=== PATIENT | female | born 1985 | race Caucasian/White ===

== ENCOUNTER 2022-06-29 14:55 | Emergency (ER) | payer SELFPAY ==
[2022-06-29 15:38] VITALS: BP 165/98; PULSE 95; RESP 16; TEMP 36.5; O2SAT 100; BMI 29.9
--- NOTE | 2022-06-29 16:25 | ED_ITS ---
HPI - General Adult General Time Seen by Provider: 16:25 Date Seen: 06/29/22 Chief complaint: Abdominal Pain Stated complaint: Abdominal pain Time Seen by Provider: 06/29/22 16:10 Source: patient Mode of arrival: ambulatory Limitations: no limitations History of Present Illness HPI narrative: Patient is a 36-year-old female who has had a hysterectomy in the past, and presents with lower abdominal pain diarrhea and vomiting over the last 2 days. She reports her abdominal pain in the lower aspect is very severe, radiates across both sides of her abdomen, does not radiate to her back. No dysuria, no frequency, some loose stool. Some nausea and vomiting. No chest pain, no shortness of breath, no COVID type symptoms. Patient has not had any intestinal issues in the past such as Crohn's colitis or inflammatory bowel disease, no history of obstruction or bowel obstruction. Related Data Home Medications Medication Instructions Recorded Confirmed duloxetine 60 mg capsule,delayed 60 mg PO DAILY 06/29/22 06/29/22 release (Cymbalta) metformin 1,000 mg tablet 1,000 mg PO TIDWM 06/29/22 06/29/22 Previous Rx's Medication Instructions Recorded tramadol 100 mg tablet 100 mg PO Q8H PRN pain #10 tabs 06/29/22 Allergies Allergy/AdvReac Type Severity Reaction Status Date / Time Penicillins Allergy Intermediate Anaphylaxis Verified 06/29/22 15:34 iodine AdvReac Intermediate Rash Verified 06/29/22 15:34 Review of Systems Status of ROS: Reports: 10 or more systems reviewed and unremarkable except as noted in History and below PFSH PFS Medical History DM (diabetes mellitus), type 2 Surgical History History of partial hysterectomy Social History Smoking Status: Current every day smoker What tobacco products do you use: cigarettes Second hand tobacco smoke exposure: Yes How often do you have a drink containing alcohol: 2-4 times a month How many standard drinks containing alcohol do you have on a typical day: 1 or 2 How often do you have six or more drinks on one occasion: Never AUDIT-C Alcohol total score: 2 Non-prescribed substance use: denies use Exam Narrative: Exam Narrative: Objective: Vital signs showed elevated blood pressure In general patient is in [id number] distress and discomfort and nausea, alert orient x3, noncyanotic HEENT otherwise unremarkable neck is supple Pulses regular abdomen is tender across the periumbilical and lower abdomen bilaterally Extremities are no edema Neurologic grossly nonfocal moving all extremities. Const: Vital Signs, click to edit/add: Vital Signs - 24 hr 06/29/22 15:38 06/29/22 17:54 06/29/22 18:41 Temperature 97.7 F Pulse Rate [Pulse Oximeter] 95 87 Respiratory Rate 16 18 Blood Pressure [Ri t Upper Arm] 165/98 H 127/74 Pulse Oximetry 100 98 97 Oxygen Delivery Me thod Room Air Room Air Course Vital Signs Vital signs: Initial Vital Signs Temperature 97.7 F 06/29/22 15:38 Temperature Source Temporal Artery Scan 06/29/22 15:38 Pulse Rate 95 06/29/22 15:38 Respiratory Rate 16 06/29/22 15:38 Blood Pressure 165/98 H 06/29/22 15:38 Blood Pressure Mean 120 06/29/22 15:38 Pulse Oximetry 100 06/29/22 15:38 Oxygen Delivery Method 06/29/22 15:38 Vital Signs Temperature 97.7 F 06/29/22 15:38 Pulse Rate 95 06/29/22 15:38 Respiratory Rate 16 06/29/22 15:38 Blood Pressure 165/98 H 06/29/22 15:38 Pulse Oximetry 100 06/29/22 15:38 Oxygen Delivery Method 06/29/22 15:38 Temperature 97.7 F 06/29/22 15:38 Pulse Rate 87 06/29/22 18:41 Respiratory Rate 18 06/29/22 18:41 Blood Pressure 127/74 06/29/22 18:41 Pulse Oximetry 97 06/29/22 18:41 Oxygen Delivery Method 06/29/22 18:41 Medical Decision Making MDM Narrative Medical decision making narrative: Patient has 2 day history of nausea vomiting mild loose stools significant abdominal pain. Given it has been this duration in in the moderate intensity she has now, I would recommend we CT scanned her abdomen make sure salcido of obstruction, colitis, inflammatory bowel disease. Also make sure she did not have appendicitis. Secondly would recommend IV fluids, IV pain medicine, laboratory studies. Disposition pending clinical response, finding on CT and labs Lab Data Labs: Lab Results 06/29/22 06/29/22 06/29/22 Range/Units 16:01 17:35 17:35 WBC 9.12 (4.50-11.00) K/uL RBC 4.25 (4.00-5.20) m/uL Hgb 14.2 (12.0-16.0) gm/dL Hct 38.7 (33.0-51.0) % MCV 91 (80-100) fL MCH 33 (26-34) pg MCHC 37 H (32-36) gm/dL RDW Coeff of Sandro 11.7 (11.5-15.5) % Plt Count 207 (140-440) K/uL Neut % (Auto) 64.4 (42.0-72.0) % Lymph % (Auto) 28.6 (20-44) % Garvin % (Auto) 4.6 (0.0-11.0) % Eos % (Auto) 1.9 (0.0-7.0) % Baso % (Auto) 0.3 (0.0-3.0) % Neut # (Auto) 5.87 (1.7-7.0) K/uL Lymph # (Auto) 2.61 (0.90-2.90) K/uL Garvin # (Auto) 0.40 (0.00-0.90) K/UL Eos # (Auto) 0.17 (0.00-0.50) K/uL Baso # (Auto) 0.03 (0.00-0.30) K/uL Abs Immat Gran (auto) 0.02 (0.00-0.30) K/uL Imm/Tot Granulo (auto) 0.2 % Sodium 139 (135-149) mmol/L Potassium 3.9 (3.6-5.1) mmol/L Chloride 108 (96-114) mmol/L Carbon Dioxide 22 (20-32) mmol/L BUN 11 (5-24) mg/dL Creatinine 0.5 (0.5-1.5) mg/dL Estimated Creat Clear 144.21 Estimated GFR 124 ml/min Glucose 130 H (60-115) mg/dL Lactate (0.5-1.9) mmol/L Calcium 8.9 (8.4-10.6) mg/dL Total Bilirubin 0.8 (0.1-1.5) mg/dL Direct Bilirubin 0.3 (0.0-0.5) mg/dL AST 42 H (12-35) U/L ALT 35 (4-35) U/L Alkaline Phosphatase 99 (40-150) U/L C-Reactive Protein 0.5 (0.5-1.0) mg/dL Total Protein 7.2 (6.0-8.3) g/dL Albumin 4.4 (3.3-5.0) g/dL Amylase 56 (18-89) U/L Urine Color Yellow (Yellow) Urine Appearance Clear (Clear) Urine pH 6.5 (5.0-8.5) Ur Specific [place] 1.025 (1.000-1.030) Urine Protein Negative (Negative) Urine Glucose (UA) Negative (Negative) Urine Ketones Negative (Negative) Urine Blood Negative (Negative) Urine Nitrite Negative (Negative) Urine Bilirubin Negative (Negative) Urine Urobilinogen 1.0 (0.2-1.0) Ur Leukocyte Esterase Negative (Negative) Urine RBC 2-5 A (0-2) Urine WBC 2-5 (0-5) Ur Squamous Epith Cells Few (None-Few) Urine Bacteria None (None) 06/29/22 Range/Units 17:35 WBC (4.50-11.00) K/uL RBC (4.00-5.20) m/uL Hgb (12.0-16.0) gm/dL Hct (33.0-51.0) % MCV (80-100) fL MCH (26-34) pg MCHC (32-36) gm/dL RDW Coeff of Sandro (11.5-15.5) % Plt Count (140-440) K/uL Neut % (Auto) (42.0-72.0) % Lymph % (Auto) (20-44) % Garvin % (Auto) (0.0-11.0) % Eos % (Auto) (0.0-7.0) % Baso % (Auto) (0.0-3.0) % Neut # (Auto) (1.7-7.0) K/uL Lymph # (Auto) (0.90-2.90) K/uL Garvin # (Auto) (0.00-0.90) K/UL Eos # (Auto) (0.00-0.50) K/uL Baso # (Auto) (0.00-0.30) K/uL Abs Immat Gran (auto) (0.00-0.30) K/uL Imm/Tot Granulo (auto) % Sodium (135-149) mmol/L Potassium (3.6-5.1) mmol/L Chloride (96-114) mmol/L Carbon Dioxide (20-32) mmol/L BUN (5-24) mg/dL Creatinine (0.5-1.5) mg/dL Estimated Creat Clear Estimated GFR ml/min Glucose (60-115) mg/dL Lactate 1.9 (0.5-1.9) mmol/L Calcium (8.4-10.6) mg/dL Total Bilirubin (0.1-1.5) mg/dL Direct Bilirubin (0.0-0.5) mg/dL AST (12-35) U/L ALT (4-35) U/L Alkaline Phosphatase (40-150) U/L C-Reactive Protein (0.5-1.0) mg/dL Total Protein (6.0-8.3) g/dL Albumin (3.3-5.0) g/dL Amylase (18-89) U/L Urine Color (Yellow) Urine Appearance (Clear) Urine pH (5.0-8.5) Ur Specific [place] (1.000-1.030) Urine Protein (Negative) Urine Glucose (UA) (Negative) Urine Ketones (Negative) Urine Blood (Negative) Urine Nitrite (Negative) Urine Bilirubin (Negative) Urine Urobilinogen (0.2-1.0) Ur Leukocyte Esterase (Negative) Urine RBC (0-2) Urine WBC (0-5) Ur Squamous Epith Cells (None-Few) Urine Bacteria (None) Discharge Plan Discharge Clinical Impression: Abdominal pain, vomiting, and diarrhea Patient Disposition: Home w/ Parent or Adult Condition: Improved Additional Instructions: Rest, light activity, fluids, yogurt orally, light diet. Update regular doctor next couple of days. Return to ED sooner problems or concerns Activity Level: Light activity Discharge Diet: Regular Prescriptions: New tramadol 100 mg tablet 100 mg PO Q8H PRN (Reason: pain) Qty: 10 0RF No Action duloxetine [Cymbalta] 60 mg capsule,delayed release(DR/EC) 60 mg PO DAILY metformin 1,000 mg tablet 1,000 mg PO TIDWM Stand Alone Forms: My[facility] Info Instructions
[2022-06-29 16:41] LABS: Appearance Urine Clear (Clear); Bilirubin Urine Negative (Negative); Blood Urine Negative (Negative); Color Urine Yellow (Yellow); Glucose Urine Negative (Negative); Ketones Urine Negative (Negative); Leukocyte Esterase Urine Negative (Negative); Nitrite Urine Negative (Negative); Protein Urine Negative (Negative); Specific Gravity Urine 1.025 (1.000-1.030); pH Urine 6.5 (5.0-8.5)
[2022-06-29 17:02] LABS: Squamous Epithelial Cell Urine Few (None-Few)
--- NOTE | 2022-06-29 17:32 | CRLHL7_ITS ---
For Patients: As a result of the Century Cures Act, medical imaging exams and procedure reports are released immediately into your electronic medical record. You may view this report before your referring provider. If you have questions, please contact your health care provider. INDICATION: Lower abdominal pain. TECHNIQUE: CT abdomen and pelvis without contrast. COMPARISON: None. FINDINGS: Lower chest: Unremarkable. Liver: Diffuse fatty infiltration. Gallbladder and bile ducts: No stones or inflammation. No biliary dilatation. Pancreas: Unremarkable. No mass or inflammation. Spleen: Normal in size. No masses. Adrenal glands: Normal in size. No nodules. Kidneys: Normal in size. No suspicious masses, stones, or hydronephrosis. GI tract: Unremarkable. Normal in caliber. No sign of mass or inflammation. Normal appendix. Vasculature: Abdominal aorta is normal in caliber. Lymph nodes: No lymphadenopathy. Peritoneum/Abdominal Wall: Unremarkable. No sign of mass or infiltration. No free air or significant free fluid. Pelvis: A 4 cm simple appearing cyst is in the left ovary. Pelvic structures otherwise unremarkable. Bones: Unremarkable for age. IMPRESSION: 1. 4 cm simple appearing left ovarian cyst without evidence of rupture. 2. Remainder of the exam is unremarkable. No other specific finding to explain lower abdominal pain. Please note that all CT scans at this facility use dose modulation, iterative reconstruction, and/or weight-based dosing when appropriate to reduce radiation dose to as low as reasonably achievable. Dictated by Marquez Hendrix MD @ 06/29/2022 6:14:23 PM (Electronically Signed)
[2022-06-29 17:43] LABS: Lactate* 1.9 mmol/L (0.5-1.9)
[2022-06-29 17:44] LABS: Basophils Absolute Auto 0.03 K/uL (0.00-0.30); Basophils Percent Auto 0.3 % (0.0-3.0); Eosinophils Absolute Auto 0.17 K/uL (0.00-0.50); Eosinophils Percent Auto 1.9 % (0.0-7.0); Hematocrit 38.7 % (33.0-51.0); Hemoglobin* 14.2 gm/dL (12.0-16.0); Immature Granulocytes Abs Auto 0.02 K/uL (0.00-0.30); Immature Granulocytes Pct Auto 0.2 %; Lymphocytes Absolute Auto 2.61 K/uL (0.90-2.90); Lymphocytes Percent Auto 28.6 % (20-44); Mean Corpuscular HGB Conc 37 gm/dL (32-36); Mean Corpuscular Hemoglobin 33 pg (26-34); Mean Corpuscular Volume 91 fL (80-100); Monocytes Percent Auto 4.6 % (0.0-11.0); Neutrophils Absolute Auto 5.87 K/uL (1.7-7.0); Neutrophils Percent Auto 64.4 % (42.0-72.0); Platelet Count* 207 K/uL (140-440); RDW Coefficient of Variation % 11.7 % (11.5-15.5); Red Blood Count 4.25 m/uL (4.00-5.20); White Blood Count* 9.12 K/uL (4.50-11.00)
[2022-06-29] MEDS: ONDANSETRON 2 MG/ML inj 4 MG IVP (17:45)
[2022-06-29] MEDS: 0.9 % SODIUM CHLORIDE 1000 ml 1,000 ML 6000 ML IV (17:45)
[2022-06-29] MEDS: HYDROmorphone 0.5 mg/0.5 ml inj IVP (17:45)
[2022-06-29 17:49] LABS: Slide Review Reflex No
[2022-06-29 17:54] VITALS: O2SAT 98
[2022-06-29] MEDS: HYDROmorphone 0.5 mg/0.5 ml inj 1 MG IVP (18:28)
[2022-06-29 18:41] VITALS: BP 127/74; PULSE 87; RESP 18; O2SAT 97
[2022-06-29 19:09] LABS: Albumin* 4.4 g/dL (3.3-5.0); Chloride* 108 mmol/L (96-114); Sodium* 139 mmol/L (135-149)
[2022-06-29 19:10] LABS: Potassium* 3.9 mmol/L (3.6-5.1)
[2022-06-29 19:11] LABS: Amylase* 56 U/L (18-89); Creatinine* 0.5 mg/dL (0.5-1.5); Est. Creatinine Clearance* 144.21; Estimated Glomerular Filt Rate 124 ml/min
[2022-06-29 19:12] LABS: Alanine Aminotransferase* 35 U/L (4-35); Alkaline Phosphatase* 99 U/L (40-150); Aspartate Amino Transferase* 42 U/L (12-35); Bilirubin Direct* 0.3 mg/dL (0.0-0.5); Bilirubin Total* 0.8 mg/dL (0.1-1.5); Blood Urea Nitrogen* 11 mg/dL (5-24); Carbon Dioxide* 22 mmol/L (20-32); Glucose* 130 mg/dL (60-115); Total Protein* 7.2 g/dL (6.0-8.3)
[2022-06-29 19:13] LABS: Calcium* 8.9 mg/dL (8.4-10.6)
[2022-06-29 19:15] LABS: C Reactive Protein* 0.5 mg/dL (0.5-1.0)
== END 2022-06-29 19:45 | disposition home or self-care (01) ==
PROVIDERS: Emergency Provider Family Medicine
DX: R10.30 Lower abdominal pain, unspecified (principal); R11.10 Vomiting, unspecified; R19.7 Diarrhea, unspecified
CPT/HCPCS: 36415; 74176; 80048; 80076; 81001; 82150; 83605; 85025; 86140; 87086; 94761; 96361; 96374; 96375; 99284; J1170; J2405; J7030

== ENCOUNTER 2022-11-14 10:38 | Emergency (ER) | payer MEDICAID, SELFPAY ==
[2022-11-14] VITALS (23 sets, daily range): BP systolic 139–192; BP diastolic 83–128; PULSE 77–104; RESP 20; TEMP 36.2; O2SAT 94–99; BMI 29.1
--- NOTE | 2022-11-14 10:57 | ED.ABDPAIN ---
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 Patient notes the onset of discomfort approximately 48 hours ago that was initially treated with ibuprofen and Tylenol successfully. However in the last 24 hours the pain has increased and she is not getting any relief. This is associated with mild nausea and diarrhea but no fever chills or vomiting. Patient notes that she has had a history of ovarian cysts in the past as well as kidney stones. She has absent a uterus secondary to endometriosis but retains both ovaries. She is a type 2 diabetic controlled with metformin. She states that she is adopted so she does not know of family reactions to anesthesia or family history. She notes that she has a allergy to iodine and in the past had needs to be treated with Benadryl prior to contrast administration. Movement greatly increases her pain. Sneezing or coughing greatly increases her pain. She is preferring to lie still and not moved. She does agree that she had a small amount of blood in her urine 1 time over last 24 hours. Related Data Home Medications Medication Instructions Recorded Confirmed duloxetine 60 mg capsule,delayed 60 mg PO DAILY 06/29/22 06/29/22 release (Cymbalta) metformin 1,000 mg tablet 1,000 mg PO TIDWM 06/29/22 06/29/22 Previous Rx's Medication Instructions Recorded tramadol 100 mg tablet 100 mg PO Q8H PRN pain #10 tabs 06/29/22 Allergies Allergy/AdvReac Type Severity Reaction Status Date / Time Penicillins Allergy Intermediate Anaphylaxis Verified 06/29/22 15:34 iodine AdvReac Intermediate Rash Verified 06/29/22 15:34 Review of Systems Status of ROS Reports: 10 or more systems reviewed and unremarkable except as noted in History and below Const Denies: fever, chills or fatigue ENMT Denies: throat pain, neck pain or throat swelling Cardio Denies: shortness of breath with exertion Resp Denies: shortness of breath or cough GI Reports: nausea and diarrhea; Denies: abdominal pain, vomiting or blood in stool Reports: blood in urine; Denies: painful urination or urinary frequency Musculo Denies: back pain, neck pain or extremity pain Neuro Denies: headache Endo Denies: fatigue Allergy/Immuno Denies: throat swelling PFSH PFS Medical History DM (diabetes mellitus), type 2 ?E11.9 - Type 2 diabetes mellitus without complications (ICD-10) Surgical History History of partial hysterectomy ?Z90.711 - Acquired absence of uterus with remaining cervical stump (ICD-10) Social History Smoking Status: Current every day smoker What tobacco products do you use: cigarettes Second hand tobacco smoke exposure: Yes How often do you have a drink containing alcohol: 2-4 times a month How many standard drinks containing alcohol do you have on a typical day: 1 or 2 How often do you have six or more drinks on one occasion: Never AUDIT-C Alcohol total score: 2 Non-prescribed substance use: denies use service: Yes Exam Narrative: Exam Narrative: Patient is alert and oriented. Tearful. Face symmetrical. Mentating normally with appropriate speech content. Neck is supple. Heart with a tachycardic rate but normal rhythm. Lungs are clear bilaterally. There is a strong smell of cigarette smoke in the room. Abdomen is soft but patient does have tenderness in the right lower quadrant and definitely rebound tenderness. Lower extremities without edema. Moving all extremities. Guarded in bowel movement. Const: Vital Signs, click to edit/add: Vital Signs - 24 hr 11/14/22 10:45 11/14/22 11:28 11/14/22 11:30 Temperature 97.1 F L Pulse Rate 87 93 Pulse Rate [Pulse Oximeter] 104 H Respiratory Rate 20 Blood Pressure Blood Pressure [Le ft Upper Arm] 192/128 H Pulse Oximetry 99 97 96 Oxygen Delivery Me thod Room Air 11/14/22 11:36 11/14/22 12:00 11/14/22 12:02 Temperature Pulse Rate 93 78 77 Pulse Rate [Pulse Oximeter] Respiratory Rate Blood Pressure 150/106 H 157/106 H Blood Pressure [Le ft Upper Arm] Pulse Oximetry 94 96 96 Oxygen Delivery Me thod 11/14/22 12:30 11/14/22 12:32 11/14/22 13:00 Temperature Pulse Rate 82 85 79 Pulse Rate [Pulse Oximeter] Respiratory Rate Blood Pressure 160/111 H Blood Pressure [Le ft Upper Arm] Pulse Oximetry 99 98 99 Oxygen Delivery Me thod 11/14/22 13:02 11/14/22 13:30 11/14/22 13:32 Temperature Pulse Rate 81 83 84 Pulse Rate [Pulse Oximeter] Respiratory Rate Blood Pressure 147/93 H 165/109 H Blood Pressure [Le ft Upper Arm] Pulse Oximetry 96 94 94 Oxygen Delivery Me thod 11/14/22 14:00 11/14/22 14:02 11/14/22 14:03 Temperature Pulse Rate 78 80 78 Pulse Rate [Pulse Oximeter] Respiratory Rate Blood Pressure 141/85 H Blood Pressure [Le ft Upper Arm] Pulse Oximetry 94 94 95 Oxygen Delivery Me thod 11/14/22 14:30 11/14/22 14:32 11/14/22 14:33 Temperature Pulse Rate 82 79 83 Pulse Rate [Pulse Oximeter] Respiratory Rate Blood Pressure 139/83 Blood Pressure [Le ft Upper Arm] Pulse Oximetry 95 97 96 Oxygen Delivery Me thod 11/14/22 15:03 11/14/22 15:47 11/14/22 16:00 Temperature Pulse Rate 85 81 79 Pulse Rate [Pulse Oximeter] Respiratory Rate Blood Pressure Blood Pressure [Le ft Upper Arm] Pulse Oximetry 96 96 97 Oxygen Delivery Mt thod 11/14/22 16:06 11/14/22 16:07 Temperature Pulse Rate 79 79 Pulse Rate [Pulse Oximeter] Respiratory Rate Blood Pressure Blood Pressure [Le ft Upper Arm] Pulse Oximetry 96 96 Oxygen Delivery Mt thod Documenting provider has reviewed patient's vital signs: yes Course Course Hospital Course: Differential diagnosis at this time includes but is not limited to appendicitis, colitis, diverticulitis, ureteral colic/kidney stone, ovarian cyst, ovarian torsion, internal hernia bowel obstruction volvulus intussusception. Will place IV and give 1 L of normal saline, morphine 4 mg, Zofran 4 mg. Labs will include a CBC, comprehensive panel, CRP, urinalysis. I would like to get a CT of the abdomen and pelvis with contrast. Will discuss use of contrast in this patient is states that she developed hives with iodine. She states that pre treating with Benadryl is usually all that she needs to abort the reaction. Reevaluation(s) Reevaluation #1: Patient was pretreated with Benadryl and hydrocortisone before CT. Patient did require additional medication of Dilaudid 0.[address] surprisingly returned within normal limits. Patient then received Toradol 15 mg IV which did help her pain. Immediately prior to ultrasound patient did have increasing pain was given an additional dose of Dilaudid 0.5 mg. Vital Signs Vital signs: Initial Vital Signs Temperature 97.1 F L 11/14/22 10:45 Temperature Source Temporal Artery Scan 11/14/22 10:45 Pulse Rate 104 H 11/14/22 10:45 Pulse Rhythm Regular 11/14/22 10:45 Respiratory Rate 20 11/14/22 10:45 Blood Pressure 192/128 H 11/14/22 10:45 Blood Pressure Mean 149 H 11/14/22 10:45 Blood Pressure Position Supine 11/14/22 10:45 Pulse Oximetry 99 11/14/22 10:45 Oxygen Delivery Method Room Air 11/14/22 10:45 Vital Signs Temperature 97.1 F L 11/14/22 10:45 Pulse Rate 104 H 11/14/22 10:45 Respiratory Rate 20 11/14/22 10:45 Blood Pressure 192/128 H 11/14/22 10:45 Pulse Oximetry 99 11/14/22 10:45 Oxygen Delivery Method Room Air 11/14/22 10:45 Temperature 97.1 F L 11/14/22 10:45 Pulse Rate 79 11/14/22 16:07 Respiratory Rate 20 11/14/22 10:45 Blood Pressure 139/83 11/14/22 14:32 Pulse Oximetry 96 11/14/22 16:07 Oxygen Delivery Method Room Air 11/14/22 10:45 MDM - Abdominal Pain MDM Narrative Medical decision making narrative: 1. Abdominal pain -at this time CT is negative for any abnormalities. An ultrasound was done as well that showed normal blood flow with no evidence of torsion or ovarian cyst. At this time I do consult with both surgery Dr. Hagan and Dr. Marilyn Shearer the OBGYN regarding this patient's pain. At this time given normal labs and reassuring radiological studies there is a general consensus that this is likely musculoskeletal. Patient has not been doing any excessive were cannot recall any injury. She states I really just wanted to find out if she was dying. She notes that she is feeling somewhat improved. I do a check of the [employer] and while she has had narcotics previously this was sporadically in 2021 and nothing in 2022. Patient will be discharged home. She may use ibuprofen 600 mg every 8 hours as needed for pain. Will also give her Flexeril 10 mg p.o. t.i.d. p.r.n. number 30 via instant med[facility] with no refills. She is to follow-up with OBGYN as this may also be her endometriosis. She will need to be recheck for that. She states she lives down in the [place] area but would gladly drive to [place] for further cares. 2. Type 2 diabetes-stable 3. Disposition-home at this time. Return course seek medical attention for ongoing or worsening symptoms. Lab Data Attestation: I reviewed the patient's lab results. Labs: Lab Results 11/14/22 11/14/22 Range/Units 10:50 11:15 WBC 8.08 (4.50-11.00) K/uL RBC 4.69 (4.00-5.20) m/uL Hgb 15.5 (12.0-16.0) gm/dL Hct 43.0 (33.0-51.0) % MCV 92 (80-100) fL MCH 33 (26-34) pg MCHC 36 (32-36) gm/dL RDW Coeff of Sandro 11.6 (11.5-15.5) % Plt Count 223 (140-440) K/uL Neut % (Auto) 63.1 (42.0-72.0) % Lymph % (Auto) 28.3 (20-44) % [place] % (Auto) 4.8 (0.0-11.0) % Eos % (Auto) 3.3 (0.0-7.0) % Baso % (Auto) 0.4 (0.0-3.0) % Neut # (Auto) 5.09 (1.7-7.0) K/uL Lymph # (Auto) 2.29 (0.90-2.90) K/uL [place] # (Auto) 0.40 (0.00-0.90) K/UL Eos # (Auto) 0.27 (0.00-0.50) K/uL Baso # (Auto) 0.03 (0.00-0.30) K/uL Sodium 136 (135-149) mmol/L Potassium 3.7 (3.6-5.1) mmol/L Chloride 105 (96-114) mmol/L Carbon Dioxide 21 (20-32) mmol/L BUN 10 (5-24) mg/dL Creatinine 0.5 (0.5-1.5) mg/dL Estimated Creat Clear 142.81 Estimated GFR 123 ml/min Glucose 197 H (60-115) mg/dL Calcium 8.8 (8.4-10.6) mg/dL Total Bilirubin 1.4 (0.1-1.5) mg/dL AST 38 H (12-35) U/L ALT 40 H (4-35) U/L Alkaline Phosphatase 92 (40-150) U/L C-Reactive Protein 1.0 (0.5-1.0) mg/dL Total Protein 7.6 (6.0-8.3) g/dL Albumin 4.5 (3.3-5.0) g/dL Urine Color Light yellow (Yellow) Urine Appearance Slightly Cloudy A (Clear) Urine pH 6.5 (5.0-8.5) Ur Specific [place] 1.020 (1.000-1.030) Urine Protein Negative (Negative) Urine Glucose (UA) 1+ A (Negative) Urine Ketones Trace A (Negative) Urine Blood Negative (Negative) Urine Nitrite Negative (Negative) Urine Bilirubin Negative (Negative) Urine Urobilinogen 0.2 (0.2-1.0) Ur Leukocyte Esterase Negative (Negative) Urine RBC 0-2 (0-2) Urine WBC 2-5 (0-5) Ur Squamous Epith Cells Few (None-Few) Urine Bacteria Few A (None) Imaging Data CT scan - abdomen: Attestation: I have reviewed the pertinent imaging results. Radiologist's impression: FINDINGS: LUNG BASES: The lung bases as visualized appear normal.The heart size is normal at the lung bases. LIVER/BILIARY SYSTEM:The liver is normal in size and configuration. There is no focal mass and there is no intra- or extra hepatic biliary ductal dilatation.Hepatic steatosis. Normal appearing gallbladder ADRENALS: Normal KIDNEYS, URETERS and BLADDER:The kidneys appear normal. No visible mass, calculus or hydronephrosis. The ureters and bladder as visualized appear normal. SPLEEN:Normal appearance. PANCREAS: Appears normal. RETROPERITONEUM and MESENTERY: There is no mass, adenopathy or aortic aneurysm. GASTROINTESTINAL SYSTEM: There is no evidence of diverticulitis, colitis, mechanical obstruction, or appendicitis. The small bowel as visualized appears normal.The appendix is well seen and appears normal. PELVIS: No mass, adenopathy or free fluid. OSSEOUS STRUCTURES and ABDOMINAL WALL: There is an age-appropriate appearance of the osseous structures.No significant abdominal wall defect. OTHER: No free fluid or free air. IMPRESSION: No specific visible cause for pain. Nonacute appearing findings as above. Pelvic ultrasound: Radiologist's impression: Uterus: Surgically absent. Right ovary: 2.9 x 1.4 x 1.7 cm.? No ovarian or adnexal masses.? Normal arterial and venous blood flow.? Left ovary: 4.1 x 2.4 x 2.2 cm.? No ovarian or adnexal masses.? Normal arterial and venous blood flow.? No free fluid is demonstrated. IMPRESSION: No evidence for ovarian torsion. Discharge Plan Discharge Clinical Impression: Acute right lower quadrant pain Patient Disposition: Home, Self-Care Condition: Improved Additional Instructions: Ibuprofen 600 mg every 8 hours as needed for discomfort. Flexeril for muscle relaxation. Note that if using Flexeril you should not use alcohol nor should you drive as this does cause sedation. Follow-up with OBGYN for recheck of endometriosis. Phone number for appointment is [phone]. Seek medical attention for worsening symptoms. Prescriptions: No Action duloxetine [Cymbalta] 60 mg capsule,delayed release(DR/EC) 60 mg PO DAILY metformin 1,000 mg tablet 1,000 mg PO TIDWM tramadol 100 mg tablet 100 mg PO Q8H PRN (Reason: pain) Qty: 10 0RF Follow Up/Referrals: Provider,Not a Local [Primary Care Provider] - Stand Alone Forms: [facility] Info Instructions
--- NOTE | 2022-11-14 11:04 | CRLHL7_ITS ---
For Patients: As a result of the Century Cures Act, medical imaging exams and procedure reports are released immediately into your electronic medical record. You may view this report before your referring provider. If you have questions, please contact your health care provider. INDICATION: Right lower quadrant pain for 2 days. Nausea. COMPARISON: June 29, 2022 TECHNIQUE: CT examination of the abdomen and pelvis was performed following the uneventful intravenous administration of 89 cc of Visipaque 320. Thin section axial images were obtained from the lung bases through the pubic symphysis. Oral contrast was not administered. Please note that all CT scans at this facility use dose modulation, iterative reconstruction, and/or weight-based dosing when appropriate to reduce radiation dose to as low as reasonably achievable. FINDINGS: LUNG BASES: The lung bases as visualized appear normal.The heart size is normal at the lung bases. LIVER/BILIARY SYSTEM:The liver is normal in size and configuration. There is no focal mass and there is no intra- or extra hepatic biliary ductal dilatation.Hepatic steatosis. Normal appearing gallbladder ADRENALS: Normal KIDNEYS, URETERS and BLADDER:The kidneys appear normal. No visible mass, calculus or hydronephrosis. The ureters and bladder as visualized appear normal. SPLEEN:Normal appearance. PANCREAS: Appears normal. RETROPERITONEUM and MESENTERY: There is no mass, adenopathy or aortic aneurysm. GASTROINTESTINAL SYSTEM: There is no evidence of diverticulitis, colitis, mechanical obstruction, or appendicitis. The small bowel as visualized appears normal.The appendix is well seen and appears normal. PELVIS: No mass, adenopathy or free fluid. OSSEOUS STRUCTURES and ABDOMINAL WALL: There is an age-appropriate appearance of the osseous structures.No significant abdominal wall defect. OTHER: No free fluid or free air. IMPRESSION: No specific visible cause for pain. Nonacute appearing findings as above. Please note that all CT scans at this facility use dose modulation, iterative reconstruction, and/or weight-based dosing when appropriate to reduce radiation dose to as low as reasonably achievable. Dictated by Juan José Khan MD @ 11/14/2022 2:34:43 PM (Electronically Signed)
[2022-11-14 11:05] LABS: Appearance Urine Slightly Cloudy (Clear); Bilirubin Urine Negative (Negative); Blood Urine Negative (Negative); Color Urine Light yellow (Yellow); Glucose Urine 1+ (Negative); Ketones Urine Trace (Negative); Leukocyte Esterase Urine Negative (Negative); Nitrite Urine Negative (Negative); Protein Urine Negative (Negative); Urobilinogen Urine 0.2 (0.2-1.0); pH Urine 6.5 (5.0-8.5)
[2022-11-14 11:14] LABS: Bacteria Urine Few; RBC Urine 0-2 (0-2); Squamous Epithelial Cell Urine Few (None-Few)
[2022-11-14] MEDS: 0.9 % SODIUM CHLORIDE 1000 ml 1,000 ML IV (11:27)
[2022-11-14] MEDS: MORPHINE 4 MG/ML INJ IVP (11:27)
[2022-11-14] MEDS: ONDANSETRON 2 MG/ML inj 4 MG IVP (11:27)
[2022-11-14 11:48] LABS: Albumin* 4.5 g/dL (3.3-5.0); Chloride* 105 mmol/L (96-114); Potassium* 3.7 mmol/L (3.6-5.1); Sodium* 136 mmol/L (135-149)
[2022-11-14 11:50] LABS: Bilirubin Total* 1.4 mg/dL (0.1-1.5); Creatinine* 0.5 mg/dL (0.5-1.5); Est. Creatinine Clearance* 142.81; Estimated Glomerular Filt Rate 123 ml/min
[2022-11-14 11:51] LABS: Alanine Aminotransferase* 40 U/L (4-35); Alkaline Phosphatase* 92 U/L (40-150); Aspartate Amino Transferase* 38 U/L (12-35); Blood Urea Nitrogen* 10 mg/dL (5-24); Carbon Dioxide* 21 mmol/L (20-32); Glucose* 197 mg/dL (60-115); Total Protein* 7.6 g/dL (6.0-8.3)
[2022-11-14 11:52] LABS: Calcium* 8.8 mg/dL (8.4-10.6)
[2022-11-14] MEDS: HYDROCORTISONE SOD SUCCINATE 50 MG/ML inj 100 MG IVP (12:08)
[2022-11-14] MEDS: diphenhydrAMINE 50 MG/ML inj IVP (12:08)
[2022-11-14 12:27] LABS: Basophils Absolute Auto 0.03 K/uL (0.00-0.30); Basophils Percent Auto 0.4 % (0.0-3.0); Eosinophils Absolute Auto 0.27 K/uL (0.00-0.50); Eosinophils Percent Auto 3.3 % (0.0-7.0); Hemoglobin* 15.5 gm/dL (12.0-16.0); Immature Granulocytes Abs Auto 0.01 K/uL (0.00-0.30); Immature Granulocytes Pct Auto 0.1 %; Lymphocytes Absolute Auto 2.29 K/uL (0.90-2.90); Lymphocytes Percent Auto 28.3 % (20-44); Mean Corpuscular HGB Conc 36 gm/dL (32-36); Mean Corpuscular Hemoglobin 33 pg (26-34); Mean Corpuscular Volume 92 fL (80-100); Monocytes Percent Auto 4.8 % (0.0-11.0); Neutrophils Absolute Auto 5.09 K/uL (1.7-7.0); Neutrophils Percent Auto 63.1 % (42.0-72.0); Platelet Count* 223 K/uL (140-440); RDW Coefficient of Variation % 11.6 % (11.5-15.5); Red Blood Count 4.69 m/uL (4.00-5.20); White Blood Count* 8.08 K/uL (4.50-11.00)
[2022-11-14 12:28] LABS: Slide Review Reflex No
[2022-11-14] MEDS: HYDROmorphone 0.5 mg/0.5 ml inj IVP ×2 (12:59→15:01)
[2022-11-14] MEDS: KETOROLAC 15 MG/ML inj IVP (14:19)
--- NOTE | 2022-11-14 14:50 | CRLHL7_ITS ---
For Patients: As a result of the Century Cures Act, medical imaging exams and procedure reports are released immediately into your electronic medical record. You may view this report before your referring provider. If you have questions, please contact your health care provider. INDICATION: Right lower quadrant pain TECHNIQUE: Ultrasound pelvis transvaginal. Real-time sonographic images with spectral and color Doppler imaging of the ovaries were obtained. COMPARISON: CT abdomen pelvis from same date FINDINGS: Uterus: Surgically absent. Right ovary: 2.9 x 1.4 x 1.7 cm. No ovarian or adnexal masses. Normal arterial and venous blood flow. Left ovary: 4.1 x 2.4 x 2.2 cm. No ovarian or adnexal masses. Normal arterial and venous blood flow. No free fluid is demonstrated. IMPRESSION: No evidence for ovarian torsion. Status post hysterectomy. Dictated by Jadyn Melendrez MD @ 11/14/2022 4:29:56 PM (Electronically Signed)
== END 2022-11-14 16:56 | disposition home or self-care (01) ==
PROVIDERS: Emergency Provider Family Medicine
DX: R10.31 Right lower quadrant pain (principal)
CPT/HCPCS: 36415; 74177; 76830; 80053; 81001; 85025; 86140; 87086; 93976; 94761; 96374; 96375; 96376; 99284; 99285; J1170; J1200; J1720; J1885; J2270; J2405; J7030; Q9967

== ENCOUNTER 2022-11-24 07:22 | Day surgery (SDC) | payer MEDICAID, SELFPAY ==
[2022-11-24] VITALS (18 sets, daily range): BP systolic 117–173; BP diastolic 69–103; PULSE 65–89; RESP 16–20; TEMP 36.4–37.1; O2SAT 95–99; BMI 30.4
[2022-11-24 08:06] LABS: Hemoglobin* 15.9 gm/dL (12.0-16.0)
[2022-11-24] MEDS: LACTATED RINGERS 1000 ML 1,000 ML 100 ML IV ×2 (08:35→10:05)
[2022-11-24] MEDS: SODIUM CHLORIDE 0.9 % (FLUSH) 10 ML SYRINGE IVF (08:39)
--- NOTE | 2022-11-24 08:57 | W.ANESCHARGE ---
Anesthesia Charges Start Date/Time Anesthesia Start Date: 11/24/22 Anesthesia Start Time: 08:42 Stop Date/Time Anesthesia Stop Date: 11/24/22 Anesthesia Stop Time: 10:43
[2022-11-24] MEDS: BUPIVACAINE 0.25% 30 ML INJECTION (09:30)
[2022-11-24] MEDS: SILVER NITRATE APPLICATOR 1 EACH STICK..EA. TOPICAL (10:30)
--- NOTE | 2022-11-24 10:46 | W.ANESCHARGE ---
Anesthesia Charges Start Date/Time Anesthesia Start Date: 11/24/22 Anesthesia Start Time: 08:42 Stop Date/Time Anesthesia Stop Date: 11/24/22 Anesthesia Stop Time: 10:43
[2022-11-24] MEDS: HYDROmorphone 0.5 mg/0.5 ml inj IVP (11:05)
--- NOTE | 2022-11-24 11:05 | W.PM.GYNPROC ---
Procedure Note Date Seen: 11/24/22 Procedure Details: PREOPERATIVE DIAGNOSIS: Chronic intermittent pelvic pain Endometriosis Vulvitis POSTOPERATIVE DIAGNOSIS: Chronic intermittent pelvic pain Endometriosis Vulvitis PROCEDURE: Laparoscopic left oophorectomy, fulguration and excision of endometriosis Vulvar biopsy SURGEON: Kim Jo MD CUTTING MACHINE OFFBEARER: Abiola Man MD ANESTHESIA: General IV FLUIDS: 1100 mL crystalloid URINE OUTPUT: 200 mL EBL: 10 mL FINDINGS: 1. Upon pelvic exam under anesthesia, vulvar skin surrounding the introitus, including the anterior perineum, bilateral labia minora, and inner portions of labia majora appear thickened and erythematous. There is a midline fissue at the posterior introitus extending down the anterior perineum. The vaginal introitus is normal in appearance, as is the urethral meatus, clitoris, and mons. 2. Upon laparoscopy, survey of the upper abdomen revealed a normal appearance to the inferior edge of the liver and stomach. Bowels were grossly normal appearance, as was the appendix. Survey of the pelvis revealed uterus and bilateral fallopian tubes to be surgically absent. The left ovary was densely adherent to the left pelvic sidewall, partially obscured by filmy adhesions of the sigmoid to the left pelvic sidewall. The right ovary was entirely normal in appearance. There was a fleshy yellow nodule just beneath the peritoneal covering adjacent to the right vaginal cuff, and 2 powder burn lesions along the right uterosacral ligament. The anterior-most powder burn lesion was deep, and the posterior-most was superficial. The cul-de-sac and bladder reflection were normal in appearance. COMPLICATIONS: None PROCEDURE IN DETAIL: Patient was taken to the operating room with IV running. She was positioned in dorsal lithotomy position with her legs fully supported in Yellofin stirrups. General anesthesia was administered. She was prepped and draped in the usual sterile fashion. A sponge stick was placed in the patient's vagina to aid in laparoscopic visualization of the vaginal cuff. Berry catheter was placed. Patient's legs were placed in neutral position. Attention was turned to patient's abdomen. The infraumbilical area was infiltrated with small amount of Marcaine. An infraumbilical incision was made with a scalpel and carried through to the underlying layer of fascia with a hemostat. The 5 mm Fios Kii trocar was assembled with laparoscope within, and insufflator attached. While tenting up the abdomen manually, the trocar was passed through the anterior abdominal wall into the peritoneal cavity. Trocar was removed. Pneumoperitoneum was achieved. Survey of abdomen and pelvis revealed the above-noted findings. Three additional port sites were created. The first was in the patient's left lower quadrant, just superior medial to the left ASIS. The second was a hand's breath superior to and slightly medial to the first. The third was in the patient's right lower quadrant, just superior medial to the right ASIS. Each was infiltrated with small amount of Marcaine prior to incision. A 5 mm incision was made at each site, making sure the large vessels were out of harm's way. A 5 mm Fios Kii port was inserted at each site, under direct visualization and without complication. The balloon on each of the four ports was inflated, holding each in place. Later in the case, after decision was made to remove left ovary, the port in the left lower quadrant was exchanged for an 11 mm port. Attention was 1st turned to the left ovary. This was held with gentle traction away from the pelvic sidewall. Filmy adhesions were dissected bluntly away from the ovarian cortex. The left ureter was identified well beneath the field of dissection. The infundibulopelvic ligament was then cauterized and transected with the Thunderbeat device. This dissection was carried down the left pelvic sidewall, and the ovary was dissected off the sidewall with the Thunderbeat, ultimately freeing the specimen. This was placed in the cul-de-sac. Hemostasis of the sidewall was achieved with monopolar cautery. The above described lesions along the right vaginal cuff and right uterosacral ligament were grasped with Jesica forceps and sharply dissected from beneath the peritoneum. The posterior most of these 3 lesions was simply fulgurated, as this was very superficial. Hemostasis at the first 2 sites were achieved with monopolar cautery. An Endo-Catch bag was inserted through the left lower quadrant port site and deployed. The ovary was placed within the bag. The bag was pulled up through the anterior abdominal wall, and the port was removed. The ovary was removed piecemeal from the bag, until it was small enough to fit through the 11 mm incision. This specimen was sent to pathology. The 11 mm port was reinserted. Hemostasis at all sites of dissection was noted. Jesus hemostatic agent was applied over each of the site. The 11 mm port was then removed. Matheus-Usha device was used to assist in placing a single suture of 0 Vicryl, which was used to close the fascia. The balloon tips of the 3 remaining ports were deflated, and pneumoperitoneum was released. The ports were removed. Bovie was used on bleeding vessels just beneath the skin incisions on tube the port sites. The skin of each port site was closed with a subcuticular stitch of 4-0 Monocryl. Surgical glue was applied above this. Finally, patient's legs were moved back to lithotomy position. The above described fissure was selected as a biopsy site. A 3 mm punch biopsy was performed, amputated sharply, and sent to pathology for further analysis. Hemostasis of the biopsy site was achieved with silver nitrate. Sponge stick was removed from the vagina and Berry catheter was removed. Patient tolerated procedure well and was taken to recovery area in stable condition.
[2022-11-24] MEDS: fentaNYL 100 MCG/2 ML inj 50 MCG IVP (11:18)
[2022-11-24] MEDS: ACETAMINOPHEN 1,000 MG/100 ML INJ 1000 MG IVPB (11:35)
[2022-11-24] MEDS: OXYCODONE 5 MG TABLET PO (12:24)
== END 2022-11-24 13:00 | disposition home or self-care (01) ==
PROVIDERS: Visit Provider Obstetrics & Gynecology
PROC: (CPT 49320; principal; 2022-11-24 08:30)
PROC: (CPT 58661; 2022-11-24 08:30)
DX: N80.3B Deep endometriosis of the uterosacral ligament(s) (principal); N80.3A1 Superficial endometriosis of the right uterosacral ligament; N76.2 Acute vulvitis; G89.29 Other chronic pain; R10.2 Pelvic and perineal pain
CPT/HCPCS: 58661; 58662; 56605; 00840; 36415; 81025; 82962; 85018; 86850; 86900; 86901; 88305; 88312; A9270; J0131; J0330; J1100; J1170; J1200; J1885; J2250; J2405; J2704; J2710; J3010; J3490; J7120

== ENCOUNTER 2022-12-26 10:24 | Outpatient (CLI) | payer MEDICAID, SELFPAY | END 2022-12-26 10:25 | disposition home or self-care (01) | LOC: NFLDREF 12-29 00:32 | PROVIDERS: Visit Provider Obstetrics & Gynecology | DX: N95.1 Menopausal and female climacteric states (principal); G47.00 Insomnia, unspecified | CPT/HCPCS: 83001; 84443 ==

== ENCOUNTER 2023-01-30 00:17 | Emergency (ER) | payer MEDICAID, SELFPAY ==
[2023-01-30] VITALS (16 sets, daily range): BP systolic 123–165; BP diastolic 73–100; PULSE 72–106; RESP 20; TEMP 36.1; O2SAT 94–99
--- NOTE | 2023-01-30 00:46 | ED.ABDPAIN ---
HPI - Abdominal Pain General Chief Complaint: Abdominal Pain Stated Complaint: Right side abdominal pain Time Seen by Provider: 01/30/23 00:39 History of Present Illness HPI narrative: pt has abd pain , 04/25 with vomiting. Pt was told she has a ovarian cyst. Was seen at [facility] in [place], on Monday 37-year-old woman presenting to the emergency department complaint of abdominal pain and vomiting. Abdominal pain is sharp and cramping. Was seen 3 and half to 4 days and regional emergency department diagnosed with an ovarian cyst. She reports this to have been 2.5 cm. Known history of endometriosis/endometritis status post hysterectomy for same apparently. Does have a history of ovarian cysts. She has not had any fever. The vomiting has been mostly dry heaving. Did not have any pain pills or antiemetic she reports only taking ibuprofen. There was an abrupt escalation this evening of pain. On review of record had mildly low potassium 4 days ago. Discussing further later with Ms. Dumont reveals that this is not abnormal finding and sounds like might be related to chronic diarrhea and metformin. Recently I believe did have cystectomy Related Data Home Medications Medication Instructions Recorded Confirmed duloxetine 60 mg capsule,delayed 60 mg PO DAILY 06/29/22 12/26/22 release (Cymbalta) metformin 1,000 mg tablet 1,000 mg PO BID 06/29/22 12/26/22 buspirone 5 mg tablet 10 mg PO TID 11/21/22 12/26/22 dulaglutide 0.75 mg/0.5 mL 0.75 mg subcut QWEEK 11/23/22 12/26/22 subcutaneous pen injector (Trulicity) Previous Rx's Medication Instructions Recorded doxepin 3 mg tablet 3 mg PO QHS PRN sleep #30 tabs 12/26/22 magnesium carb,citrate,oxide 300 mg PO DAILY #15 tabs 01/30/23 (Magnesium Complex) Allergies Allergy/AdvReac Type Severity Reaction Status Date / Time Penicillins Allergy Intermediate Anaphylaxis Verified 12/26/22 09:18 cefaclor Allergy Verified 12/26/22 09:18 Iodinated Contrast Media Allergy Verified 12/26/22 09:18 iodine AdvReac Intermediate Rash Verified 12/26/22 09:18 Review of Systems Status of ROS Reports: 6 or more systems reviewed and unremarkable except as noted in History and below [facility] Medical History DM (diabetes mellitus), type 2 ?E11.9 - Type 2 diabetes mellitus without complications (ICD-10) Surgical History H/O laparoscopy ?Z98.890 - Other specified postprocedural states (ICD-10) S/P laparoscopic hysterectomy ?Z90.710 - Acquired absence of both cervix and uterus (ICD-10) Family History Other Adopted Social History Smoking Status: Current every day smoker What tobacco products do you use: cigarettes Second hand tobacco smoke exposure: Yes How often do you have a drink containing alcohol: 2-4 times a month How many standard drinks containing alcohol do you have on a typical day: 1 or 2 How often do you have six or more drinks on one occasion: Never AUDIT-C Alcohol total score: 2 Non-prescribed substance use: denies use Caffeine: Yes Are you using contraception or practicing any form of control: Yes service: Yes Exam Narrative: Exam Narrative: Is pleasant. Polite. Crying holding her low abdomen in pain when I enter the room. Suddenly appears to have spasm of increased pain. Small cigarette smoke. Skin is warm and dry. Abdomen is soft exquisitely tender in the right low pelvis. Genitourinary/pelvic exam was not done. Breathing easily. Heart is in an elevated rate and in a regular rhythm without murmur noted. Was actually tachycardic on arrival. Blood pressures also noted to be elevated. Const: Vital Signs, click to edit/add: Vital Signs - 24 hr 01/30/23 00:22 01/30/23 00:50 01/30/23 01:00 Temperature 97.0 F L Pulse Rate 96 88 Pulse Rate [Right Pulse Oximeter] 106 H Respiratory Rate 20 Blood Pressure Blood Pressure [Ri ght Upper Arm] 165/100 H Pulse Oximetry 99 97 97 Oxygen Delivery Me thod Room Air 01/30/23 01:20 01/30/23 01:40 01/30/23 02:17 Temperature Pulse Rate 80 78 77 Pulse Rate [Right Pulse Oximeter] Respiratory Rate Blood Pressure Blood Pressure [Ri ght Upper Arm] Pulse Oximetry 96 96 97 Oxygen Delivery Me thod 01/30/23 02:18 01/30/23 02:20 01/30/23 02:21 Temperature Pulse Rate 79 79 77 Pulse Rate [Right Pulse Oximeter] Respiratory Rate Blood Pressure 148/96 H 141/94 H Blood Pressure [Ri ght Upper Arm] Pulse Oximetry 96 96 94 Oxygen Delivery Me thod 01/30/23 02:40 01/30/23 02:41 Temperature Pulse Rate 74 74 Pulse Rate [Right Pulse Oximeter] Respiratory Rate Blood Pressure 140/96 H Blood Pressure [Ri ght Upper Arm] Pulse Oximetry 96 96 Oxygen Delivery Me thod Documenting provider has reviewed patient's vital signs: yes Course Vital Signs Vital signs: Initial Vital Signs Temperature 97.0 F L 01/30/23 00:22 Temperature Source Temporal Artery Scan 01/30/23 00:22 Pulse Rate 106 H 01/30/23 00:22 Pulse Rhythm Regular 01/30/23 00:22 Respiratory Rate 20 01/30/23 00:22 Blood Pressure 165/100 H 01/30/23 00:22 Blood Pressure Mean 121 H 01/30/23 00:22 Blood Pressure Position Left Lateral 01/30/23 00:22 Pulse Oximetry 99 01/30/23 00:22 Oxygen Delivery Method Room Air 01/30/23 00:22 Vital Signs Temperature 97.0 F L 01/30/23 00:22 Pulse Rate 106 H 01/30/23 00:22 Respiratory Rate 20 01/30/23 00:22 Blood Pressure 165/100 H 01/30/23 00:22 Pulse Oximetry 99 01/30/23 00:22 Oxygen Delivery Method Room Air 01/30/23 00:22 Temperature 97.0 F L 01/30/23 00:22 Pulse Rate 75 01/30/23 04:00 Respiratory Rate 20 01/30/23 00:22 Blood Pressure 123/73 01/30/23 03:01 Pulse Oximetry 98 01/30/23 04:00 Oxygen Delivery Method Room Air 01/30/23 00:22 MDM - Abdominal Pain MDM Narrative Medical decision making narrative: Certainly could be ruptured cyst with hemorrhagic component causing great deal of pain. The spasming nature of this also makes one wonder about torsion though is absent uterus. Suppose could be constipation as well amplifying tissues inflamed with endometritis. Ureteral colic and differential. Plus or minus ureteral stone. Urinary tract infection. IVs initiated. Will be receiving normal saline pain management. Labs pending. Unremarkable labs other than potassium low at 2.8. At this time was discovered also that there were some unusual arterial waveforms present supplying the right ovary on the requested transvaginal ultrasound. Initiated IV replacement of potassium. Checked a magnesium which was also low normal 1.5. Had request reimaging which showed normal arterial and venous waveforms. Final Report: INDICATION: Right lower quadrant pain TECHNIQUE: Ultrasound pelvis transabdominal and transvaginal for better assessment or to better visualize the endometrium. Real-time sonographic images with spectral and color Doppler imaging of the ovaries were obtained. COMPARISON: November 14, 2022 FINDINGS: Uterus: Surgically absent. Right ovary: 3.4 x 2.2 x 3.4 cm. No ovarian or adnexal masses. There is blood flow in the right ovary with normal venous waveform. The arterial waveform is abnormal. Left ovary: Surgically absent. Cul-de-sac: No significant free fluid. IMPRESSION: The right ovary is normal in size and demonstrates blood flow, however the arterial waveform is abnormal. Recommend repeat arterial waveform imaging. Surgically absent uterus and left ovary. Findings discussed with Dr. Norman at 3:28 a.m. on January 30, 2023. Dictated by Jadyn Melendrez MD @ 01/30/2023 3:32:41 AM ----- ADDENDUM ----- Addendum: Additional arterial and venous waveforms were obtained of the right ovary. Both the venous and arterial waveforms are normal in appearance. There is no evidence for right ovarian torsion. This addendum was discussed with Dr. Norman at 4:57 a.m. on January 30, 2023. Dictated by Jadyn Melendrez MD @ Jan 30 2023 4:52AM During time in the ER was treated for pain and nausea. Initially with ketorolac Zofran fentanyl and IV fluids. Pain returned fairly quickly improved with 0.5 mg of Dilaudid and pain subsided for a longer period of time. Re-dosed with Dilaudid. Normal CBCs suspect less likely there is other etiology to pain that would benefit from elucidation with CT. I suspect in the setting of endometriosis/endometritis, bowel peristalsis might be contributing to this pain. Note diarrheal history above. May be in hormonal menses with inflamed endometrial tissue at this time. See patient discharge plan Lab Data Attestation: I reviewed the patient's lab results. Labs: Lab Results 01/30/23 01/30/23 01/30/23 Range/Units 00:40 01:50 03:37 WBC 10.48 (4.50-11.00) K/uL RBC 4.58 (4.00-5.20) m/uL Hgb 15.0 (12.0-16.0) gm/dL Hct 40.8 (33.0-51.0) % MCV 89 (80-100) fL MCH 33 (26-34) pg MCHC 37 H (32-36) gm/dL RDW Coeff of Sandro 11.5 (11.5-15.5) % Plt Count 259 (140-440) K/uL Neut % (Auto) 59.3 (42.0-72.0) % Lymph % (Auto) 32.0 (20-44) % Gentry % (Auto) 5.6 (0.0-11.0) % Eos % (Auto) 2.4 (0.0-7.0) % Baso % (Auto) 0.5 (0.0-3.0) % Neut # (Auto) 6.22 (1.7-7.0) K/uL Lymph # (Auto) 3.35 H (0.90-2.90) K/uL Gentry # (Auto) 0.60 (0.00-0.90) K/UL Eos # (Auto) 0.25 (0.00-0.50) K/uL Baso # (Auto) 0.05 (0.00-0.30) K/uL Abs Immat Gran (auto) 0.02 (0.00-0.30) K/uL Imm/Tot Granulo (auto) 0.2 % Sodium 136 (135-149) mmol/L Potassium 2.8 L* (3.6-5.1) mmol/L Chloride 102 (96-114) mmol/L Carbon Dioxide 22 (20-32) mmol/L BUN 7 (5-24) mg/dL Creatinine 0.6 (0.5-1.5) mg/dL Estimated GFR 118 ml/min Glucose 217 H (60-115) mg/dL Calcium 9.0 (8.4-10.6) mg/dL Magnesium 1.5 (1.5-2.6) mg/dL C-Reactive Protein 0.7 (0.5-1.0) mg/dL Urine Color Yellow (Yellow) Urine Appearance Clear (Clear) Urine pH 6.0 (5.0-8.5) Ur Specific [place] 1.015 (1.000-1.030) Urine Protein Negative (Negative) Urine Glucose (UA) Trace A (Negative) Urine Ketones Trace A (Negative) Urine Blood Negative (Negative) Urine Nitrite Negative (Negative) Urine Bilirubin Negative (Negative) Urine Urobilinogen 0.2 (0.2-1.0) Ur Leukocyte Esterase Negative (Negative) Urine RBC 0-2 (0-2) Urine WBC 0-2 (0-5) Ur Squamous Epith Cells Few (None-Few) Urine Bacteria Moderate A (None) Lab Acknowledgement Test Added Discharge Plan Discharge Clinical Impression: Pelvic pain, Hypokalemia Patient Disposition: Home w/ Parent or Adult Condition: Improved Additional Instructions: Focus on hydration. Given that you apparently have persistent loss of potassium I would think that taking 20 mEq twice daily for a week and then rechecking your potassium level might be acceptable. This might help you know how much you need to be supplementing. Might be easier to keep potassium up if you are also supplementing magnesium. Sent in script. Confirming that there was no mention of a cyst on the ultrasound today. Asiya from [facility]. Prescriptions: New Magnesium Complex 300 mg magnesium tablet 300 mg PO DAILY Qty: 15 0RF No Action doxepin 3 mg tablet 3 mg PO QHS PRN (Reason: sleep) Qty: 30 1RF buspirone 5 mg tablet 10 mg PO TID duloxetine [Cymbalta] 60 mg capsule,delayed release(DR/EC) 60 mg PO DAILY metformin 1,000 mg tablet 1,000 mg PO BID Trulicity 0.75 mg/0.5 mL pen injector 0.75 mg subcut QWEEK Hold Instructions: insurance reasons Follow Up/Referrals: Provider,Not a Local [Primary Care Provider] - Stand Alone Forms: [facility] Info Instructions
--- NOTE | 2023-01-30 00:51 | CRLHL7_ITS ---
For Patients: As a result of the Century Cures Act, medical imaging exams and procedure reports are released immediately into your electronic medical record. You may view this report before your referring provider. If you have questions, please contact your health care provider. INDICATION: Right lower quadrant pain TECHNIQUE: Ultrasound pelvis transabdominal and transvaginal for better assessment or to better visualize the endometrium. Real-time sonographic images with spectral and color Doppler imaging of the ovaries were obtained. COMPARISON: November 14, 2022 FINDINGS: Uterus: Surgically absent. Right ovary: 3.4 x 2.2 x 3.4 cm. No ovarian or adnexal masses. There is blood flow in the right ovary with normal venous waveform. The arterial waveform is abnormal. Left ovary: Surgically absent. Cul-de-sac: No significant free fluid. IMPRESSION: The right ovary is normal in size and demonstrates blood flow, however the arterial waveform is abnormal. Recommend repeat arterial waveform imaging. Surgically absent uterus and left ovary. Findings discussed with Dr. Norman at 3:28 a.m. on January 30, 2023. Dictated by Jadyn Melendrez MD @ 01/30/2023 3:32:41 AM (Electronically Signed)
[2023-01-30] MEDS: 0.9 % SODIUM CHLORIDE 1000 ml 1,000 ML IV (01:07)
[2023-01-30] MEDS: KETOROLAC 30 MG/ML inj IVP (01:07)
[2023-01-30] MEDS: fentaNYL 100 MCG/2 ML inj 75 MCG IVP (01:07)
[2023-01-30] MEDS: ONDANSETRON 2 MG/ML inj 4 MG IVP (01:21)
[2023-01-30 01:50] LABS: RBC Urine 0-2 (0-2)
[2023-01-30 01:55] LABS: Appearance Urine Clear (Clear); Bilirubin Urine Negative (Negative); Blood Urine Negative (Negative); Color Urine Yellow (Yellow); Glucose Urine Trace (Negative); Ketones Urine Trace (Negative); Leukocyte Esterase Urine Negative (Negative); Nitrite Urine Negative (Negative); Protein Urine Negative (Negative); Specific Gravity Urine 1.015 (1.000-1.030); Urobilinogen Urine 0.2 (0.2-1.0)
[2023-01-30] MEDS: HYDROmorphone 0.5 mg/0.5 ml inj IVP ×2 (02:20→04:18)
[2023-01-30 02:25] LABS: Bacteria Urine Moderate; Squamous Epithelial Cell Urine Few (None-Few); WBC Urine 0-2 (0-5)
[2023-01-30 03:14] LABS: Chloride* 102 mmol/L (96-114); Sodium* 136 mmol/L (135-149)
[2023-01-30 03:17] LABS: Basophils Absolute Auto 0.05 K/uL (0.00-0.30); Basophils Percent Auto 0.5 % (0.0-3.0); Blood Urea Nitrogen* 7 mg/dL (5-24); Carbon Dioxide* 22 mmol/L (20-32); Creatinine* 0.6 mg/dL (0.5-1.5); Eosinophils Absolute Auto 0.25 K/uL (0.00-0.50); Eosinophils Percent Auto 2.4 % (0.0-7.0); Estimated Glomerular Filt Rate 118 ml/min; Hematocrit 40.8 % (33.0-51.0); Immature Granulocytes Abs Auto 0.02 K/uL (0.00-0.30); Immature Granulocytes Pct Auto 0.2 %; Lymphocytes Absolute Auto 3.35 K/uL (0.90-2.90); Mean Corpuscular HGB Conc 37 gm/dL (32-36); Mean Corpuscular Hemoglobin 33 pg (26-34); Mean Corpuscular Volume 89 fL (80-100); Monocytes Percent Auto 5.6 % (0.0-11.0); Neutrophils Absolute Auto 6.22 K/uL (1.7-7.0); Neutrophils Percent Auto 59.3 % (42.0-72.0); Platelet Count* 259 K/uL (140-440); RDW Coefficient of Variation % 11.5 % (11.5-15.5); Red Blood Count 4.58 m/uL (4.00-5.20); White Blood Count* 10.48 K/uL (4.50-11.00)
[2023-01-30 03:18] LABS: Glucose* 217 mg/dL (60-115)
[2023-01-30 03:20] LABS: C Reactive Protein* 0.7 mg/dL (0.5-1.0)
[2023-01-30 03:23] LABS: Slide Review Reflex No
[2023-01-30 03:33] LABS: Potassium* 2.8 mmol/L (3.6-5.1)
[2023-01-30] MEDS: POTASSIUM CHLORIDE 10 MEQ/100 ML PIGGYBACK 100 MEQ IVPB (04:10)
[2023-01-30 04:56] LABS: Magnesium* 1.5 mg/dL (1.5-2.6)
== END 2023-01-30 05:31 | disposition home or self-care (01) ==
PROVIDERS: Emergency Provider Family Medicine
DX: R10.2 Pelvic and perineal pain (principal); E87.6 Hypokalemia
CPT/HCPCS: 36415; 76830; 80048; 81001; 83735; 85025; 86140; 87086; 93976; 96365; 96375; 96376; 99284; J1170; J1885; J2405; J3010; J3480; J7030